=== PATIENT | female | born 1960 | race Caucasian/White ===

== ENCOUNTER 2022-07-10 11:21 | Emergency (ER) | payer SELFPAY ==
[~2022-07-10] VITALS: Ht 167.6 cm; Wt 72.6 kg
[2022-07-10 11:23] VITALS: BP 124/65
[2022-07-10] MEDS ORDERED: HYDROCODONE/APAP 5/325MG TABLET PO ONE (12:00)
[2022-07-10] MEDS ORDERED: METHOCARBAMOL (500MG) 500 MG TABLET PO ONE (12:00)
[2022-07-10] MEDS ORDERED: METHOCARBAMOL (500MG) 500 MG TABLET ONE (12:15)
[2022-07-10] MEDS ORDERED: HYDROCODONE/APAP 5/325MG TABLET ONE ×2 (12:15→12:24)
[2022-07-10] MEDS ORDERED: CYCLOBENZAPRINE 10 MG TABLET ONE (12:24)
[2022-07-10] MEDS ORDERED: HYDR-3972 PO ×2 (12:56→13:04)
[2022-07-10] MEDS ORDERED: METH-647 PO (13:04)
--- NOTE | 2022-07-10 13:23 | NUR ---
SEEN AND EVALUATED BY DR KIM, MEDICATED ORDERED. DISCHARGED HOME IN STABLE CONDITION
== END 2022-07-10 13:25 | disposition home or self-care (01) ==
LOC: ER 12:50
DX: M62.838 Other muscle spasm (principal); E11.22 Type 2 diabetes mellitus with diabetic chronic kidney disease; I12.0 Hypertensive chronic kidney disease with stage 5 chronic kidney disease or end stage renal disease; N18.6 End stage renal disease; F32.A Depression, unspecified; F41.9 Anxiety disorder, unspecified; Z99.2 Dependence on renal dialysis; Z79.1 Long term (current) use of non-steroidal anti-inflammatories (NSAID); Z79.899 Other long term (current) drug therapy